=== PATIENT | male | born 1945 | race Asian ===

== ENCOUNTER → 2021-01-28 09:50 | Outpatient (CLI) | payer MEDICARE, OTHER, SELFPAY ==
[2021-01-28 10:28] LABS: Add Manual Diff / Slide Review NO; Basophils Absolute Auto 100 /uL (0-100); Basophils Percent Auto 0.9 % (0-2); Eosinophils Absolute Auto 200 /uL (0-450); Eosinophils Percent Auto 3.3 % (2-4); Hematocrit 47.7 % (41-53); Hemoglobin 15.8 g/dL (13.5-17.5); Lymphocytes Absolute Auto 1400 /uL (1100-4500); Lymphocytes Percent Auto 22.1 % (25-40); Mean Corpuscular HGB Conc 33.2 % (30-36); Mean Corpuscular Hemoglobin 32.5 PG (26-34); Mean Corpuscular Volume 97.9 fL (80-100); Monocytes Absolute Auto 500 /uL (0-900); Monocytes Percent Auto 8.5 % (3-14); Neutrophils Absolute Auto 4100 /uL (1500-7000); Neutrophils Percent Auto 65.2 % (50-75); Platelet Count 273 X10^3/uL (150-400); Red Blood Cell Count 4.87 X10^6/uL (4.5-5.9); Red Cell Distribution Width 13.8 % (11.6-14.8); White Blood Cell Count 6.3 X10^3/uL (4.5-11.0)
[2021-01-28 10:45] LABS: Hemoglobin A1C% w Est Avg Glu 5.3 % (4.0-6.0)
[2021-01-28 12:10] LABS: BUN Creatinine Ratio 28.4 (6-22); Blood Urea Nitrogen 19 mg/dL (9-20); Calcium 9.7 mg/dL (8.4-10.2); Carbon Dioxide 30 mmol/L (22-32); Chloride 105 mmol/L (98-107); Estimated Glomerular Filt Rate > 60.0 mL/min (>60); Glucose 117 mg/dL (80-110); HEMOLYSIS < 15 (0-50); Potassium 4.5 mmol/L (3.4-5.1); Sodium 138 mmol/L (137-145)
== END ==
PROVIDERS: Referring Provider Orthopaedic Surgery; Visit Provider Orthopaedic Surgery
DX: Z01.818 Encounter for other preprocedural examination (principal); R73.9 Hyperglycemia, unspecified; M25.562 Pain in left knee; Z01.812 Encounter for preprocedural laboratory examination
CPT/HCPCS: 36415; 80048; 83036; 85025; 93005; 93010

== ENCOUNTER → 2021-02-05 10:06 | Outpatient (CLI) | payer MEDICARE, OTHER, SELFPAY ==
[2021-02-05 11:46] LABS: COVID19 -Nasal RAPID Negative (Negative)
== END ==
PROVIDERS: Visit Provider Nurse Practitioner
DX: Z20.822 Contact with and (suspected) exposure to COVID-19 (principal)
CPT/HCPCS: 87635; C9803

== ENCOUNTER 2021-02-09 10:44 | Observation (INO) | payer MEDICARE, OTHER, SELFPAY ==
[2021-02-01 09:46] VITALS: BMI 24.3
[2021-02-08] VITALS (10 sets, daily range): BP systolic 116–149; BP diastolic 57–97; PULSE 60–93; RESP 10–16; TEMP 35.8–37.2; O2SAT 96–99; BMI 24.3
[2021-02-08] MEDS: PREGABALIN 75 MG CAPSULE PO (11:49)
[2021-02-08] MEDS: ACETAMINOPHEN 325 MG TABLET 975 MG PO (11:50)
[2021-02-08] MEDS: CELECOXIB 200 MG CAPSULE PO (11:50)
[2021-02-08] MEDS: LACTATED RINGERS 1,000 ML 42 ML IV (11:51)
--- NOTE | 2021-02-08 12:45 | DI.RAD.S_ITS ---
PROCEDURE: XR KNEE LT 1TO2V INDICATIONS: LEFT TOTAL KNEE TECHNIQUE: 2 views of the knee were acquired. COMPARISON: None. FINDINGS: Bones: Expected post operative alignment of left knee arthroplasty. Hardware appears intact. Soft tissues: Expected postsurgical sequela IMPRESSION: Expected post operative appearance. Dictated by: Rigoberto Woods M.D. on 02/08/2021 at 15:56 Approved by: Rigoberto Woods M.D. on 02/08/2021 at 15:57
--- NOTE | 2021-02-08 12:48 | PM.PREOP ---
Pre-operative Note COVID-19 COVID-19 status: Negative Result date/Date tested (Pos, Neg/Pending): 02/05/21 Interval Note History & Physical reviewed/Exam performed by Physician: Yes Changes to H&P: No
[2021-02-08] MEDS: CEFAZOLIN 1 GM VIAL 2 GM IV (13:39)
[2021-02-08] MEDS: TRANEXAMIC ACID 1,000 MG VIAL 1000 MG INJ ×2 (13:46→15:06)
--- NOTE | 2021-02-08 13:56 | SUR.OPER ---
Supine on padded OR bed. Pillow under head, arms secured on padded armboards <90 degree abduction. Safety belt across torso. Non-operative leg secured with tape over blanket over lower leg. Operative leg secured in [place] positioner.
[2021-02-08] MEDS: BUPIVACAINE 0.25% (PF) VIAL 60 ML INJ (14:04)
[2021-02-08] MEDS: EPINEPHrine 1 MG/ML 0.3 MG INJ (14:05)
[2021-02-08] MEDS: BUPIVACAINE LIPOSOME 266 MG/20 ML VIAL INJ (14:05)
[2021-02-08] MEDS: MORPHINE 4 MG/ML INJ INJ (14:07)
--- NOTE | 2021-02-08 15:18 | PM.OP.1 ---
Operative Date/Time/Diagnoses Date of procedure: 02/08/21 Time of procedure: 15:18 Pre-op diagnosis: Left knee osteoarthritis Post-op diagnosis: same Procedure & Clinicians Procedure: Left total knee replacement Same procedure as scheduled: Yes Indications: The patient has had progressively worsening left knee pain with radiographic changes consistent with arthritis. Non-operative management has failed and the patient has requested total knee replacement. The risks, benefits and alternatives to surgery were discussed with the patient prior to proceeding. Risks discussed included, but were not limited to, failure to relieve pain, stiffness, infection, nerve damage, deep venous thrombosis, pulmonary embolism, stroke, coma, heart attack, permanent paralysis and , as well as the potential need for eventual revision of the prosthetic. Surgeon: Jose Cotto Manager Client Service: Jami Westbrook Click Yes if Unassisted: No Anesthesia Type: Spinal, Sedation and Local Operative Notes Findings: Severe tricompartmental osteoarthritis with the worst injury being medial. Closure Type: primary Specimen(s): none sent Prosthetic devices, grafts, tissues, transplants, or devices: Implants used in this procedure were manufactured by the [employer] and [employer] and included the BCS II Journey total knee replacement with a size 7 left cobalt chromium femoral component, a size 6 left non porous tibial base plate, a 9 mm cross-linked polyethylene tibial insert and a 38 mm oval Janet II patella. Applied: implant(s) Estimated Blood Loss (mL): 25 Tourniquet time (min): 53 Procedure in detail: The patient was seen in the pre-operative area, where the left knee was identified as the operative site and this was marked with my initials. The patient received pre-operative antibiotics, and was taken to the operating room and placed on the operative table in the supine position. After satisfactory anesthesia, a program instructor out was performed. The left leg was encircled with a tourniquet about the proximal thigh, and the leg was prepared from the toes to the tourniquet with ChloroPrep in the usual fashion and draped through sterile drapes. The leg was elevated and exsanguinated with Eschmark bandage and the tourniquet inflated to 250 mmHg pressure. The knee was approached through an approximately 18 cm incision centered over the patella and carried into the knee through a medial parapatellar arthrotomy. The anterior osteophytes and soft tissues were removed. The rotational landmarks of [place]'s line and the transepicondylar axis were marked on the femur with electrocautery, and intramedullary guide holes for the femur and tibia were created. The distal femoral cut was made in 6 degrees of valgus using the intramedullary guide at the +1 cut setting due to a mild flexion contracture. The proximal tibial cut was then made using the intramedullary guide, taking 9 mm of bone off the less involved side. The extension gap was checked and the rotation of the femoral component confirmed with the gap balancing blocks. The anterior, posterior and chamfer cuts were then made. The posterior osteophytes and soft tissues were then removed. The posterior capsule was injected with part of a mixture of 60 ml 0.25% Marcaine mixed with 20 ml Exparel and 4 mg of morphine for post-operative pain control. The remainder of this mixture was injected into the capsule and subcutaneous tissues during cement curing. The tibia was prepared with the rotation set by an extra medullary guide. Trial tibial and femoral components were then placed and the intercondylar notch cut through the femoral trial. Range of motion was 0-145 degrees, with good stability throughout the range. The patella was then cut to accommodate the patellar prosthetic. There was no need for a lateral release. The trials were then removed, and the femoral hole plugged with a bone plug. The bone was prepared with pulsatile lavage, and dried with a sponge. Cement was applied and the final prosthetics placed. Excess cement was removed during and after cement curing. After confirming there was no extruded cement posteriorly, the final tibial insert was placed. The knee was copiously irrigated and the tourniquet deflated. Hemostasis was obtained. The capsule was closed with interrupted # 2 polyester sutures. The subcutaneous layer was closed with 3-0 Vicryl, and the skin with a running 3-0 V-Lock suture and Dermabond. An Aquacel Ag dressing was applied and the patient was taken to recovery having tolerated the procedure well. Complications: none Post-operative Condition: stable Disposition: PACU Plan for aftercare: The patient will be maintained on a standard total knee replacement protocol with weight bearing as tolerated. The patient will receive aspirin and sequential compression devices for DVT prophylaxis. The patient will be discharged home when safe for the home environment.
--- NOTE | 2021-02-08 15:49 | SUR.PREOP ---
Note: received reprt at bedside from EVELINA Eastman and Dr Guzman,pt cond stable
--- NOTE | 2021-02-08 16:09 | SUR.PHASEI ---
Report given to floor nurse Perri.
[2021-02-08] MEDS: LACTATED RINGERS 1,000 ML 100 ML IV (16:36)
[2021-02-08] MEDS: IBUPROFEN 400 MG TABLET PO ×2 (17:21→20:30)
[2021-02-08] MEDS: ACETAMINOPHEN 325 MG TABLET 650 MG PO (20:30)
[2021-02-08] MEDS: DOCUSATE 100 MG CAPSULE PO (20:30)
[2021-02-08] MEDS: ASPIRIN EC 81 MG TABLET PO (20:30)
[2021-02-09] VITALS: BP 127/76; PULSE 89; RESP 18; TEMP 36.4; O2SAT 95
[2021-02-09] MEDS: IBUPROFEN 400 MG TABLET PO ×2 (02:24→08:29)
[2021-02-09 04:21] VITALS: BP 132/82; PULSE 77; RESP 18; TEMP 36.1; O2SAT 95
--- NOTE | 2021-02-09 04:39 | PC.NURSE ---
Pt A and O x 4, VSS. Pt unable to void post op, straight cath yeilded 900 mLs. Pt denies pain. Pt able to eat and has an appetite but has had small emesis events x 3. LS clear, S1, S2.
[2021-02-09 05:51] LABS: Hematocrit 41.7 % (41-53); Hemoglobin 14.1 g/dL (13.5-17.5)
[2021-02-09 08:15] VITALS: BP 143/86; PULSE 94; RESP 17; TEMP 36.9; O2SAT 98
[2021-02-09] MEDS: OXYCODONE IR 5 MG TABLET PO (08:28)
[2021-02-09] MEDS: DOCUSATE 100 MG CAPSULE PO (08:28)
[2021-02-09] MEDS: ASPIRIN EC 81 MG TABLET PO (08:28)
[2021-02-09] MEDS: ACETAMINOPHEN 325 MG TABLET 650 MG PO (08:28)
[2021-02-09 08:29] VITALS: BP 132/82
[2021-02-09] MEDS: LOSARTAN 50 MG TABLET PO (08:29)
--- NOTE | 2021-02-09 09:15 | PM.DS.1 ---
History of Present Illness History of Present Illness Date Patient Seen: 02/09/21 Time Patient Seen: 09:16 Chief complaint: Left knee pain status post left TKA Narrative: The patient's pain is mild. He experienced nausea and vomiting last night, but this has resolved this morning. He denies fevers, chills, night sweats. He is overall feeling well. He has not worked with physical therapy yet. He is having some difficulty voiding and therefore tamsulosin was ordered today. Otherwise he is without complaints. Discharge Providers Provider Discharge Date: 02/09/21 Primary care physician: Kyle Barrera MD Consults: 02/08/21 16:03 Consult to Discharge Planning Routine Comment: Consult to Physical Therapy Evaluate & Treat Comment: Physician Instructions: postop TKA protocol Discharge provider: Jami Westbrook PA-C Summary Hospital Course Discharge Diagnosis: Left knee osteoarthritis Hospital Course: Procedure: Left total knee replacement Same procedure as scheduled: Yes Indications: The patient has had progressively worsening left knee pain with radiographic changes consistent with arthritis. Non-operative management has failed and the patient has requested total knee replacement. The risks, benefits and alternatives to surgery were discussed with the patient prior to proceeding. Risks discussed included, but were not limited to, failure to relieve pain, stiffness, infection, nerve damage, deep venous thrombosis, pulmonary embolism, stroke, coma, heart attack, permanent paralysis and , as well as the potential need for eventual revision of the prosthetic. Surgeon: Jose Cotto Sheetrock Applicator: Jami Westbrook Click Yes if Unassisted: No Anesthesia Type: Spinal, Sedation and Local Operative Notes Findings: Severe tricompartmental osteoarthritis with the worst injury being medial. Closure Type: primary Specimen(s): none sent Prosthetic devices, grafts, tissues, transplants, or devices: Implants used in this procedure were manufactured by the [employer] and [employer] and included the BCS II Journey total knee replacement with a size 7 left cobalt chromium femoral component, a size 6 left non porous tibial base plate, a 9 mm cross-linked polyethylene tibial insert and a 38 mm oval Janet II patella. Applied: implant(s) Estimated Blood Loss (mL): 25 Tourniquet time (min): 53 Status at Discharge Cognitive/behavioral status at discharge: oriented Functional status at discharge: uses cane/walker Overall status at discharge: patient is progressing back to baseline Exam Vital Signs (past 8 hours): - 02/09/21 04:21 02/09/21 08:15 02/09/21 08:29 Temperature 97.0 F L 98.4 F Pulse Rate 77 94 H Respiratory Rate 18 17 Blood Pressure 132/82 143/86 H 132/82 Pulse Oximetry 95 98 Oxygen Delivery Method Room Air Oxygen Flow Rate 0 Narrative Exam Narrative: Pleasant 75-year-old male, resting comfortably in bed, no acute distress. is at bedside. Motor functions are intact in bilateral lower extremities. Sensation is grossly intact to light touch in bilateral lower extremities. Both legs are warm and dry and SCDs were on and functioning. Bilateral calves are soft, nontender to palpation. Dressing is clean, dry, intact. Objective Labs Result Diagrams: 02/09/21 05:30 Labs: Laboratory Results - last 24 hr 02/09/21 05:30 Hgb 14.1 Hct 41.7 PFSH Medical History Arthritis Dislocation of left shoulder joint Easy bruisability HTN (hypertension) Neuropathy Osteoarthritis Surgical History History of ankle surgery (1970) History of hip surgery (1959) Hx of arthroscopy of left knee (1999) Hx of arthroscopy of right knee (1998) Hx of bilateral cataract extraction Hx of repair of right rotator cuff (2010) Hx of tonsillectomy Social History household members: spouse Smoking Status: Never smoker alcohol intake: current Discharge Assessment & Plan Assessment and Plan Assessment: Progressing as expected status post left total knee arthroplasty. The patient is experiencing some urinary retention. Plan of Treatment: -aspirin 81 mg b.i.d. x6 weeks for DVT prophylaxis -Tylenol, ibuprofen, Oxy for pain. -Mobilize with PT x2 sessions today -Add Flomax for urinary retention -If the patient is cleared by PT and is voiding without difficulty, he may be discharged home today. Otherwise we will need to keep him another night. Discharge Plan Discharge Plan Patient Disposition: Home Discharge orders & Medications Discharge Orders: Discharge (Order); Ordered 02/09/21 Ordered By: Jami Westbrook Prescriptions: New acetaminophen 500 mg capsule 500 mg PO Q4H MDD Max 6 tabs/day PRN (Reason: pain) Qty: 90 RF: 0 aspirin 81 mg Tablet,Delayed Release (Dr/Ec) 81 mg PO BID PRN (Reason: To prevent blood clots x6 weeks) Qty: 90 RF: 0 ibuprofen 400 mg Tablet 400 mg PO Q4HR MDD Max 2400 mg per day PRN (Reason: pain) Qty: 90 RF: 0 oxycodone 5 mg Tablet 5 mg PO Q3HR PRN (Reason: Breakthrough pain, moderate to severe) Qty: 42 RF: 0 polyethylene glycol 3350 17 gram Powder In Packet 17 g PO DAILY PRN (Reason: Constipation from the narcotic pain med) Qty: 14 RF: 0 tamsulosin 0.4 mg capsule 0.4 mg PO BEDTIME PRN (Reason: urinary retention) Qty: 5 RF: 0 Continued losartan 50 mg Tablet 50 mg PO DAILY RF: 0 Discontinued naproxen sodium [Aleve] 220 mg Capsule 220 mg PO BID RF: 0 Follow up/Referrals: Kyle Barrera MD [Primary Care Provider] - Jose Cotto MD [Physician] - (10-14 days for postoperative visit) Diet/Activity/Treatments Diet: Diet as Tolerated and Regular Activity: -weightbearing as tolerated with front wheel walker -continue with home exercises from physical therapy Cold/Heat Therapy: -use ice as needed for pain for 30 minutes up to 3 hours at a time, 3-5 xs per day -protect skin from ice with folded pillowcase/washcloth Other treatments: -aspirin 81 mg twice daily x6 weeks to prevent blood clots -Tylenol 500 mg every 4 hours plus ibuprofen 400 mg every 4 hours for pain -use Oxy 5 mg 1/2 to 1 tab every 3-4 hours for breakthrough pain -Use MiraLax as needed for constipation due to Oxy -Use tamsulosin as needed for urinary retention x5 days Skin/Wound/Dressing Care Report to your healthcare provider any signs of infection, such as:: chills, fever, night sweats, unusual drainage and unusual redness Dressing: -remove Yimi wrap after 48 hours from surgery -okay to shower with waterproof dressing in place. Do not remove waterproof dressing. -call the office if dressing becomes wet, soiled, saturated Visit Report/Discharge Packet Instructions: DI for Knee Replacement Stand Alone Forms: Surgery Discharge Discharge Data Primary Care Provider: Kyle Barrera Attending Provider: Jose Cotto VTE Deep Vein Thrombosis/Pulmonary Embolism Present on Admission: No
[2021-02-09] MEDS: TAMSULOSIN 0.4 MG CAPSULE PO (10:19)
--- NOTE | 2021-02-09 10:30 | PT.IIE ---
Current Diagnoses Unilateral primary osteoarthritis, left knee (02/09/21) Surgery Performed Operation Date: 02/08/21 12:45 Actual Procedures p Total Knee Arthroplasty(Left) - Jose Cotto MD Medical History (Last Reviewed 02/09/21 @ 09:18 by Jami Westbrook PA-C) Arthritis Dislocation of left shoulder joint Easy bruisability HTN (hypertension) Neuropathy Osteoarthritis Physical Therapy Inpatient Evaluation/Re-Eval M1 PT/OT-IP Prior Functional Status Start: 02/09/21 12:21 Freq: NEEDED Status: Active Protocol: Document 02/09/21 10:30 DLM (Rec: 02/09/21 12:36 DLM [id number]) Medical Review Prior Functional Status Medical History Reviewed Yes Diet/Fluid Consistency Regular Communication WNL, glasses Mobility and Gait Independent without device Activities of Daily Living and IADL's Independent Prior Functional Level (Other details) he likes to boat and go crabbing, he mostly uses his power boat but has a sail boat also Social History Household Members spouse Living Arrangements House Number of Floors (Floors) Two Floors Number of Stairs To Enter/Railing? can stay on main level, one step to enter Home Environment Standard Height Toilet Home Equipment Front Wheel Walker,Straight Cane,Crutches Employment Status Retired M2 PT-IP Current Condition Start: 02/09/21 12:21 Freq: NEEDED Status: Active Protocol: Document 02/09/21 10:30 DLM (Rec: 02/09/21 12:36 DLM [id number]) Physical Therapy Current Condition Current Condition Evaluation Date 02/09/21 Treatment Diagnosis left TKA, impaired gait Onset Date 02/08/21 Weight Bearing Status Weight Bearing Status Weight Bear as Tolerated M3 PT-IP Subjective Start: 02/09/21 12:21 Freq: NEEDED Status: Active Protocol: Document 02/09/21 10:30 DLM (Rec: 02/09/21 12:36 DLM [id number]) Subjective Physical Therapy Visit Type Type Initial Evaluation Visit Start Time 09:30 Visit Stop Time 10:30 Total Visit Minutes 60 Number of MODELING DIRECTOR Visits 0 Physical Therapy Visit Comments Patient Comments He feels he is doing well today Patient Goals Discharge home Therapy Pain Assessment Pain When Pain Assessed After Treatment Pain Present Pain Present Pain Reported Location Left Knee Intensity 4 Scale Used Numeric (0 - 10) Description Aching Pain Behaviors Wincing Pain Management Techniques Apply Cold,Elevation,Re- positioning,Timing of Activity with Medications M4 PT-IP Mobility and Gait Start: 02/09/21 12:21 Freq: NEEDED Status: Active Protocol: Document 02/09/21 10:30 DLM (Rec: 02/09/21 12:36 DLM [id number]) PT-Bed Mobility Assessment Rolling Level of Assist Independent Supine to Sit Supine to Sit Independent Sit to Supine Sit to Supine Independent Scooting Scooting to Edge of Bed Independent Scooting Up and Down in Bed Independent PT-Transfer Assessment Sit to and From Stand Sit to and from Stand Independent,Use of Upper Extremities Equipment Transfer Assistive Device Gait Belt,Front Wheeled Walker Transfers Transfer Destination Bed,Toilet Transfer Technique Stand Step Pivot Transfer Ability Level of Assist Standby Assistance,Use of Upper Extremities Comments Mobility Comments pt up to toilet to urinate standing with FWW then for BM seated Gait Assessment Gait Gait Assistance Required: Standby Assistance Distance (Feet) 300 Assistive Devices Assistive Device Gait Belt,Front Wheeled Walker Gait Deviations General Gait Pattern Antalgic,Decreased Stride Length Factors Limiting Gait Function Factors Limiting Gait Function Decreased Activity Tolerance, Decreased Strength,Limited Range of Motion,Pain,Poor Balance Comments Gait Comments He demonstrates safe use of FWW, he shows minimal compensations with UE's but educated him to increase UE support on FWW if left knee feels weak or painful Stair Climbing Assessment Evaluation Level of Assist On Stairs Standby Assistance Devices Stair Climbing Assistive Devices Front Wheel Walker Technique/Endurance Stair Climbing Direction Ascend and Descend Stair Climbing Technique Step to Step Number of Steps Climbed 1 Query Text: Stair Climbing Set # Repetitions (reps) 2 Comments Stair Climbing Comments Up and down curb step with FWW and SBA. Up and down 3 steps with bilateral rails with SBA, pt to use cane or crutch in place of second rail if he chooses to do stairs at home. PT-Balance Assessment Sitting Balance and Reactions Static Sitting Balance Ability Normal Dynamic Sitting Balance Ability Normal Standing Balance and Reactions Static Standing Balance Ability Good Dynamic Standing Balance Ability Good Device Used FWW M5 PT-IP Objective Assessments Start: 02/09/21 12:21 Freq: NEEDED Status: Active Protocol: Document 02/09/21 10:30 DLM (Rec: 02/09/21 12:36 [facility] [id number]) Orientation Orientation/Cognition Level of Alertness Alert Orientation Name,Age,Birthday,Month,Date, Year,Day of Week,Place, Situation Language Function Ability No Deficits Noted Safety Awareness Understands Safety Issues Memory Description No Deficits Noted Gross Range of Motion Upper Extremity ROM Assessment Within Functional Limits Impairments mild end range shoulder elevation stiffness Lower Extremity ROM Assessment Left Impaired Impairments knee 20-90 degrees Strength Upper Extremity Strength Assessment Within Functional Limits Lower Extremity Strength Assessment Left Impaired Hip independent straight leg raise Knee knee ext seated 3-/5 Ankle DF 5/5 Coordination Assessment Gross Coordination Gross Coordination WNL Sensation Assessment Sensation Gross Sensation WNL Comments Sensation Comments heather wrap in place over dressing so this area was not fully assessed, no changes reported in left LE in general after surgery Muscle Tone Muscle Tone WNL Yes M6 PT-IP Treatment Start: 02/09/21 12:21 Freq: NEEDED Status: Active Protocol: Document 02/09/21 10:30 DLM (Rec: 02/09/21 12:36 [facility] [id number]) Physical Therapy Treatment Exercises Exercises Ankle Pumps,Quad Sets,Heel Slides,Straight Leg Raises, Short Arc Quads,Passive Knee Extension Hang,Seated Knee Flexion/Extension Education Education Provided Weight Bearing Status,Post-Op Packet,Safety Equipment Issued Equipment Type and Company pt has his FWW from home in his room Other Treatments Other Treatment Performed educated pt and his in HEP and home safety issues, his participated in this therapy visit M7 PT-IP Assessment and Plan Start: 02/09/21 12:21 Freq: NEEDED Status: Active Protocol: Document 02/09/21 10:30 DLM (Rec: 02/09/21 12:36 [facility] [id number]) PT Summary Assessment and Plan Potential Rehabilitation Potential Excellent Status of Condition at Evaluation Evolving Summary Impairments Pain,ROM,Strength,Balance,Bed Mobility,Transfers,Gait, Activity Tolerance Goals Bed Mobility Goal Independent Transfer Goal Standby Assistance,Front Wheeled Walker Gait Goal Standby Assistance,Front Wheel Walker Gait Distance 150 feet Other Goals Up and down one step with fWW and SBA to enter the house Days to Meet Goals 1 Frequency of Treatment Frequency Of Treatment Twice a Day Treatment Plan Physical Therapy Treatment Plan Bed Mobility Training,Transfer Training,Gait Training, Therapeutic Exercise,Balance Retraining,Post Op Education, Discharge Planning,Hot or Cold Pack Recommendations To Nursing Amount of Assist Needed Standby Assistance Discharge Recommendations PT Discharge Recommendations Home with Assistance, Outpatient PT Other Discharge Recommendations he reports he has out-pt PT planned post-op Transportation Needs at Discharge Private Vehicle
--- NOTE | 2021-02-09 10:30 | PT.IIE ---
Current Diagnoses Unilateral primary osteoarthritis, left knee (02/09/21) Surgery Performed Operation Date: 02/08/21 12:45 Actual Procedures p Total Knee Arthroplasty(Left) - Jose Cotto MD Medical History (Last Reviewed 02/09/21 @ 09:18 by Jami Westbrook PA-C) Arthritis Dislocation of left shoulder joint Easy bruisability HTN (hypertension) Neuropathy Osteoarthritis Physical Therapy Inpatient Evaluation/Re-Eval M1 PT/OT-IP Prior Functional Status Start: 02/09/21 12:21 Freq: NEEDED Status: Active Protocol: Document 02/09/21 10:30 DLM (Rec: 02/09/21 12:36 DLM [id number]) Medical Review Prior Functional Status Medical History Reviewed Yes Diet/Fluid Consistency Regular Communication WNL, glasses Mobility and Gait Independent without device Activities of Daily Living and IADL's Independent Prior Functional Level (Other details) he likes to boat and go crabbing, he mostly uses his power boat but has a sail boat also Social History Household Members spouse Living Arrangements House Number of Floors (Floors) Two Floors Number of Stairs To Enter/Railing? can stay on main level, one step to enter Home Environment Standard Height Toilet Home Equipment Front Wheel Walker,Straight Cane,Crutches Employment Status Retired M2 PT-IP Current Condition Start: 02/09/21 12:21 Freq: NEEDED Status: Active Protocol: Document 02/09/21 10:30 DLM (Rec: 02/09/21 12:36 DLM [id number]) Physical Therapy Current Condition Current Condition Evaluation Date 02/09/21 Treatment Diagnosis left TKA, impaired gait Onset Date 02/08/21 Weight Bearing Status Weight Bearing Status Weight Bear as Tolerated M3 PT-IP Subjective Start: 02/09/21 12:21 Freq: NEEDED Status: Active Protocol: Document 02/09/21 10:30 DLM (Rec: 02/09/21 12:36 DLM [id number]) Subjective Physical Therapy Visit Type Type Initial Evaluation Visit Start Time 09:30 Visit Stop Time 10:30 Total Visit Minutes 60 Number of BOTTLER Visits 0 Physical Therapy Visit Comments Patient Comments He feels he is doing well today Patient Goals Discharge home Therapy Pain Assessment Pain When Pain Assessed After Treatment Pain Present Pain Present Pain Reported Location Left Knee Intensity 4 Scale Used Numeric (0 - 10) Description Aching Pain Behaviors Wincing Pain Management Techniques Apply Cold,Elevation,Re- positioning,Timing of Activity with Medications M4 PT-IP Mobility and Gait Start: 02/09/21 12:21 Freq: NEEDED Status: Active Protocol: Document 02/09/21 10:30 DLM (Rec: 02/09/21 12:36 DLM [id number]) PT-Bed Mobility Assessment Rolling Level of Assist Independent Supine to Sit Supine to Sit Independent Sit to Supine Sit to Supine Independent Scooting Scooting to Edge of Bed Independent Scooting Up and Down in Bed Independent PT-Transfer Assessment Sit to and From Stand Sit to and from Stand Independent,Use of Upper Extremities Equipment Transfer Assistive Device Gait Belt,Front Wheeled Walker Transfers Transfer Destination Bed,Toilet Transfer Technique Stand Step Pivot Transfer Ability Level of Assist Standby Assistance,Use of Upper Extremities Comments Mobility Comments pt up to toilet to urinate standing with FWW then for BM seated Gait Assessment Gait Gait Assistance Required: Standby Assistance Distance (Feet) 300 Assistive Devices Assistive Device Gait Belt,Front Wheeled Walker Gait Deviations General Gait Pattern Antalgic,Decreased Stride Length Factors Limiting Gait Function Factors Limiting Gait Function Decreased Activity Tolerance, Decreased Strength,Limited Range of Motion,Pain,Poor Balance Comments Gait Comments He demonstrates safe use of FWW, he shows minimal compensations with UE's but educated him to increase UE support on FWW if left knee feels weak or painful Stair Climbing Assessment Evaluation Level of Assist On Stairs Standby Assistance Devices Stair Climbing Assistive Devices Front Wheel Walker Technique/Endurance Stair Climbing Direction Ascend and Descend Stair Climbing Technique Step to Step Number of Steps Climbed 1 Query Text: Stair Climbing Set # Repetitions (reps) 2 Comments Stair Climbing Comments Up and down curb step with FWW and SBA. Up and down 3 steps with bilateral rails with SBA, pt to use cane or crutch in place of second rail if he chooses to do stairs at home. PT-Balance Assessment Sitting Balance and Reactions Static Sitting Balance Ability Normal Dynamic Sitting Balance Ability Normal Standing Balance and Reactions Static Standing Balance Ability Good Dynamic Standing Balance Ability Good Device Used FWW M5 PT-IP Objective Assessments Start: 02/09/21 12:21 Freq: NEEDED Status: Active Protocol: Document 02/09/21 10:30 DLM (Rec: 02/09/21 12:36 DLM [id number]) Orientation Orientation/Cognition Level of Alertness Alert Orientation Name,Age,Birthday,Month,Date, Year,Day of Week,Place, Situation Language Function Ability No Deficits Noted Safety Awareness Understands Safety Issues Memory Description No Deficits Noted Gross Range of Motion Upper Extremity ROM Assessment Within Functional Limits Impairments mild end range shoulder elevation stiffness Lower Extremity ROM Assessment Left Impaired Impairments knee 20-90 degrees Strength Upper Extremity Strength Assessment Within Functional Limits Lower Extremity Strength Assessment Left Impaired Hip independent straight leg raise Knee knee ext seated 3-/5 Ankle DF 5/5 Coordination Assessment Gross Coordination Gross Coordination WNL Sensation Assessment Sensation Gross Sensation WNL Comments Sensation Comments heather wrap in place over dressing so this area was not fully assessed, no changes reported in left LE in general after surgery Muscle Tone Muscle Tone WNL Yes M6 PT-IP Treatment Start: 02/09/21 12:21 Freq: NEEDED Status: Active Protocol: Document 02/09/21 10:30 DLM (Rec: 02/09/21 12:36 DL [id number]) Physical Therapy Treatment Exercises Exercises Ankle Pumps,Quad Sets,Heel Slides,Straight Leg Raises, Short Arc Quads,Passive Knee Extension Hang,Seated Knee Flexion/Extension Education Education Provided Weight Bearing Status,Post-Op Packet,Safety Equipment Issued Equipment Type and Company pt has his FWW from home in his room Other Treatments Other Treatment Performed educated pt and his in HEP and home safety issues, his participated in this therapy visit Pt appears more pale and fatigued when back in bed after therapy. Vital signs checked: BP 118/78 and HR 91, O2 sat on room air 95%. His nurse was informed. Pt has no symptoms other than fatigue at this time. M7 PT-IP Assessment and Plan Start: 02/09/21 12:21 Freq: NEEDED Status: Active Protocol: Document 02/09/21 10:30 DLM (Rec: 02/09/21 12:36 DL [id number]) PT Summary Assessment and Plan Potential Rehabilitation Potential Excellent Status of Condition at Evaluation Evolving Summary Impairments Pain,ROM,Strength,Balance,Bed Mobility,Transfers,Gait, Activity Tolerance Assessment: Pt is tolerating activity well post-op. No nausea and no light-headedness during activity. He tolerated gait in the coronado and stair training well with fWW. He has a supportive to assist at home as needed. He has a fWW to use at home for discharge. Training completed this visit for safe discharge. He appears safe to discharge home when medically cleared. Goals Bed Mobility Goal Independent Transfer Goal Standby Assistance,Front Wheeled Walker Gait Goal Standby Assistance,Front Wheel Walker Gait Distance 150 feet Other Goals Up and down one step with fWW and SBA to enter the house Days to Meet Goals 1 Frequency of Treatment Frequency Of Treatment Twice a Day Treatment Plan Physical Therapy Treatment Plan Bed Mobility Training,Transfer Training,Gait Training, Therapeutic Exercise,Balance Retraining,Post Op Education, Discharge Planning,Hot or Cold Pack Recommendations To Nursing Amount of Assist Needed Standby Assistance Discharge Recommendations PT Discharge Recommendations Home with Assistance, Outpatient PT Other Discharge Recommendations he reports he has out-pt PT planned post-op Transportation Needs at Discharge Private Vehicle
--- NOTE | 2021-02-09 11:19 | PC.NURSE ---
Discharge: pt discharged home. Urinating in small amounts. Flomax dose administered. Also instructed pt to pick Flomax up from [facility]. REviewed all medications prescribed, as well as activity restrictions, care of surgical incision, when he can shower. IV discontinued. All belongings went home with patient. is driving.
== END 2021-02-09 11:22 | disposition home or self-care (01) ==
LOC: OR 10:50 → AC 10:50
PROVIDERS: Admitting Provider Orthopaedic Surgery; PCP Student in an Organized Health Care Education/Training Program; Referring Provider Orthopaedic Surgery; Visit Provider Orthopaedic Surgery
PROC: 0SRD0JZ Replacement of Left Knee Joint with Synthetic Substitute, Open Approach (ICD-10-PCS; CPT 27447; principal; 2021-02-08 12:45)
DX: M17.12 Unilateral primary osteoarthritis, left knee (principal); I10 Essential (primary) hypertension; R11.2 Nausea with vomiting, unspecified
CPT/HCPCS: 27447; 73560; 85014; 85018; 97110; 97116; 97162; C1776; G0378; C9290; J0171; J0690; J2270; J2274; J2704

== ENCOUNTER → 2021-05-17 12:50 | Outpatient (CLI) | payer MEDICARE, OTHER, SELFPAY ==
[2021-02-08 16:41] VITALS: BMI 24.3
[2021-05-17 16:21] LABS: COVID19 -Nasal RAPID Negative (Negative)
== END ==
PROVIDERS: PCP Student in an Organized Health Care Education/Training Program; Visit Provider Physician Assistant
DX: Z20.822 Contact with and (suspected) exposure to COVID-19 (principal)
CPT/HCPCS: 87635; C9803

== ENCOUNTER → 2021-05-17 13:00 | Outpatient (CLI) | payer MEDICARE, OTHER, SELFPAY ==
[2021-02-08 16:41] VITALS: BMI 24.3
[2021-05-17 13:56] LABS: Add Manual Diff / Slide Review NO; Basophils Absolute Auto 100 /uL (0-100); Basophils Percent Auto 0.9 % (0-2); Eosinophils Absolute Auto 200 /uL (0-450); Eosinophils Percent Auto 3.1 % (2-4); Hematocrit 45.3 % (41-53); Hemoglobin 15.2 g/dL (13.5-17.5); Lymphocytes Absolute Auto 1400 /uL (1100-4500); Lymphocytes Percent Auto 23.1 % (25-40); Mean Corpuscular HGB Conc 33.5 % (30-36); Mean Corpuscular Hemoglobin 31.8 PG (26-34); Mean Corpuscular Volume 94.7 fL (80-100); Monocytes Absolute Auto 500 /uL (0-900); Monocytes Percent Auto 8.5 % (3-14); Neutrophils Absolute Auto 4000 /uL (1500-7000); Neutrophils Percent Auto 64.4 % (50-75); Platelet Count 265 X10^3/uL (150-400); Red Blood Cell Count 4.78 X10^6/uL (4.5-5.9); Red Cell Distribution Width 14.3 % (11.6-14.8); White Blood Cell Count 6.2 X10^3/uL (4.5-11.0)
[2021-05-17 14:09] LABS: Hemoglobin A1C% w Est Avg Glu 5.3 % (4.0-6.0)
[2021-05-17 14:16] LABS: BUN Creatinine Ratio 27.9 (6-22); Blood Urea Nitrogen 19 mg/dL (9-20); Calcium 9.8 mg/dL (8.4-10.2); Carbon Dioxide 29 mmol/L (22-32); Chloride 104 mmol/L (98-107); Estimated Glomerular Filt Rate > 60.0 mL/min (>60); Glucose 108 mg/dL (80-110); HEMOLYSIS < 15 (0-50); Potassium 4.7 mmol/L (3.4-5.1); Sodium 138 mmol/L (137-145)
== END ==
PROVIDERS: PCP Student in an Organized Health Care Education/Training Program; Referring Provider Orthopaedic Surgery; Visit Provider Orthopaedic Surgery
DX: R73.9 Hyperglycemia, unspecified (principal); Z01.812 Encounter for preprocedural laboratory examination
CPT/HCPCS: 36415; 80048; 83036; 85025

== ENCOUNTER 2021-05-20 10:54 | Observation (INO) | payer MEDICARE, OTHER, SELFPAY ==
[2021-02-08 16:41] VITALS: BMI 24.3
[2021-05-11 14:05] VITALS: BMI 24.1
[2021-05-19] VITALS (9 sets, daily range): BP systolic 90–156; BP diastolic 53–104; PULSE 47–99; RESP 14–91; TEMP 36.3–37.1; O2SAT 96–99; BMI 24.1
--- NOTE | 2021-05-19 06:00 | DI.RAD.S_ITS ---
PROCEDURE: XR KNEE RT 1TO2V INDICATIONS: prosthesis placement TECHNIQUE: 2 view(s) of the knee acquired. COMPARISON: [facility] [place], [place], XR KNEE 4+ VIEWS LEFT, 03/25/2021, 14:50. FINDINGS: Bones: Patient is status post knee joint arthroplasty. Hardware components are in expected positions. Visualized bony structures are intact. Ossification adjacent to the medial femoral condyle is stable compared to preoperative imaging. Soft tissues: Overlying postoperative changes are noted. IMPRESSION: Expected postsurgical change for left knee arthroplasty. Dictated by: Terri Rios MD, PhD on 05/19/2021 at 16:13 Approved by: Terri Rios MD, PhD on 05/19/2021 at 16:13
[2021-05-19] MEDS: LACTATED RINGERS 1,000 ML 42 ML IV ×2 (12:45→16:26)
[2021-05-19] MEDS: ACETAMINOPHEN 325 MG TABLET 975 MG PO (12:49)
[2021-05-19] MEDS: MELOXICAM 7.5 MG TABLET 15 MG PO (12:49)
[2021-05-19] MEDS: CELECOXIB 200 MG CAPSULE PO (12:50)
--- NOTE | 2021-05-19 13:15 | P.OP_ITS ---
Operative Date/Time/Diagnoses Date of procedure: 05/19/21 Time of procedure: 15:41 Pre-op diagnosis: Right knee osteoarthritis Post-op diagnosis: same Procedure & Clinicians Procedure: Right total knee replacement Same procedure as scheduled: Yes Indications: The patient has had progressively worsening right knee pain with radiographic changes consistent with arthritis. Non-operative management has failed and the patient has requested total knee replacement. The risks, benefits and alternatives to surgery were discussed with the patient prior to proceeding. Risks discussed included, but were not limited to, failure to relieve pain, stiffness, infection, nerve damage, deep venous thrombosis, pulmonary embolism, stroke, coma, heart attack, permanent paralysis and , as well as the potential need for eventual revision of the prosthetic. Surgeon: Jose Cotto Federal Appellate Clerk: Jami Westbrook Click Yes if Unassisted: No Anesthesia Type: General, Spinal and Local Operative Notes Findings: Severe tricompartmental osteoarthritis Closure Type: primary Specimen(s): none sent Prosthetic devices, grafts, tissues, transplants, or devices: Implants used in this procedure were manufactured by the [employer] and included the BCS II Journey total knee replacement with a size 6 right cobalt chromium femur, a size 7 right non porous tibial base plate, a an 11 mm cross-linked polyethylene insert and a 35 mm oval Janet II patellar component. Applied: implant(s) Estimated Blood Loss (mL): 25 Blood products transfused: none Tourniquet time (min): 52 Procedure in detail: The patient was seen in the pre-operative area, where the patient identified the right knee as the operative site and this was marked with my initials. The patient received pre-operative antibiotics, and was taken to the operating room and placed on the operative table in the supine position. After satisfactory anesthesia, a ratchet setter out was performed. The right leg was encircled with a tourniquet about the proximal thigh, and the leg was prepared from the toes to the tourniquet with ChloroPrep in the usual fashion and draped through sterile drapes. The leg was elevated and exsanguinated with Eschmark bandage and the tourniquet inflated to 250 mmHg pressure. The knee was approached through an approximately 18 cm incision centered over the patella and carried into the knee through a medial parapatellar arthrotomy. The anterior osteophytes and soft tissues were removed. The rotational landmarks of Kittitas's line and the transepicondylar axis were marked on the femur with electrocautery, and intramedullary guide holes for the femur and tibia were created. The distal femoral cut was made in 6 degrees of valgus using the intramedullary guide at the primary cut setting. The proximal tibial cut was then made using the intramedullary guide, taking 9 mm of bone off the less involved side. The extension gap was checked and the rotation of the femoral component confirmed with the gap balancing system. The anterior, posterior and chamfer cuts were then made. The posterior osteophytes and soft tissues were then removed. The posterior capsule was injected with part of a mixture of 60 ml 0.25% Marcaine mixed with 20 ml Exparel and 4 mg of morphine for post-operative pain control. The remainder of this mixture was injected into the capsule and subcutaneous tissues during cement curing. The tibia was prepared with the rotation set by an extra medullary guide. Trial tibial and femoral components were then placed and the intercondylar notch cut through the femoral trial. Range of motion was 0-135 degrees, with good stability throughout the range. The patella was then cut to accommodate the patellar prosthetic. There was no need for a lateral release. The trials were then removed, and the femoral hole plugged with a bone plug. The bone was prepared with pulsatile lavage, and dried with a sponge. Cement was a pplied and the final prosthetics placed. Excess cement was removed during and after cement curing. After confirming there was no extruded cement posteriorly, the final tibial insert was placed. The knee was copiously irrigated and the tourniquet deflated. Hemostasis was obtained. The capsule was closed with interrupted # 2 polyester suture. The subcutaneous layer was closed with 3-0 Vicryl, and the skin with a running 3-0 V-Lock suture and Dermabond. An Aquacel Ag dressing was applied and the patient was taken to recovery having tolerated the procedure well. Post-operative Condition: stable Disposition: PACU Plan for aftercare: The patient will be maintained on a standard total knee replacement protocol with weight bearing as tolerated. The patient will receive aspirin and sequential compression devices for DVT prophylaxis. The patient will be discharged home when safe for the home environment.
--- NOTE | 2021-05-19 13:15 | PM.PREOP ---
Pre-operative Note COVID-19 COVID-19 status: Negative Result date/Date tested (Pos, Neg/Pending): 05/17/21 Interval Note History & Physical reviewed/Exam performed by Physician: Yes Changes to H&P: No
[2021-05-19] MEDS: CEFAZOLIN 2 GM/20 ML SYRINGE IV (14:13)
[2021-05-19] MEDS: TRANEXAMIC ACID 1,000 MG VIAL 1000 MG INJ ×2 (14:15→15:25)
--- NOTE | 2021-05-19 14:28 | SUR.OPER ---
Supine on padded OR bed. Pillow under head, arms secured on padded armboards <90 degree abduction. Safety belt across torso. Non-operative leg secured with tape over blanket over lower leg. Operative leg secured in [place] positioner. Foam padded brace at thigh of operative leg.
[2021-05-19] MEDS: BUPIVACAINE 0.25% (PF) 60 ML, EPINEPHrine 0.3 MG INJ (14:31)
[2021-05-19] MEDS: MORPHINE 4 MG/ML INJ INJ (14:32)
[2021-05-19] MEDS: BUPIVACAINE LIPOSOME 266 MG/20 ML VIAL INJ (14:32)
--- NOTE | 2021-05-19 16:27 | SUR.PHASEI ---
Patient with 1200 ml lactated ringers infused in PACU.
[2021-05-19] MEDS: LACTATED RINGERS 1,000 ML 100 ML IV ×2 (19:56→22:00)
--- NOTE | 2021-05-19 19:58 | PC.NURSE ---
Pt arrived from PACU at 1630, A&Ox3. He denies N/V, or pain. +CMS to BLE's, reports RLE feels slightly heavier. VSS, afebrile on RA. He tolerates dinner this evening well. IVF @100 ml/hr. Continuous monitoring, Admission assessment completed with Zurdo HOYT. Endorsed to oncoming shift about history of urinary retention. Continuous monitoring.
[2021-05-19] MEDS: ONDANSETRON 4 MG/2 ML INJ IV (20:55)
[2021-05-19] MEDS: DOCUSATE 100 MG CAPSULE PO (20:55)
[2021-05-19] MEDS: TAMSULOSIN 0.4 MG CAPSULE 0.8 MG PO (20:55)
[2021-05-19] MEDS: ACETAMINOPHEN 325 MG TABLET 650 MG PO (20:55)
[2021-05-19] MEDS: ASPIRIN EC 81 MG TABLET PO (20:55)
--- NOTE | 2021-05-19 22:08 | PC.NURSE ---
2200: patient is a/o, denies pain/discomfort. tolerating RA 97%. + CSM, dressing is CDI, ice packs in place. denies n/v. bladder scan: 442mL standing orders for strait cath/leave stearns in. 16french 10cc stearns placed w/ drain bag to gravity. 650cc clear yellow urine collected in bag after stearns placed. patient request no intermittent catheterization but to leave stearns in place, as this was the similar course of events 3 months ago when he had his L knee replaced.
[2021-05-20] VITALS: BP 131/86; PULSE 98; RESP 16; TEMP 36.9
[2021-05-20 04:00] VITALS: BP 134/84; PULSE 93; RESP 16; TEMP 36.7; O2SAT 96
[2021-05-20] MEDS: LACTATED RINGERS 1,000 ML 100 ML IV (05:29)
[2021-05-20 06:37] LABS: Hematocrit 39.1 % (41-53); Hemoglobin 13.2 g/dL (13.5-17.5)
--- NOTE | 2021-05-20 07:37 | PM.DS.1 ---
History of Present Illness History of Present Illness Date Patient Seen: 05/20/21 Time Patient Seen: 07:38 Chief complaint: *OPB* Narrative: The history and physical is contained in the chart previously completed note. Please refer to that note for this information. Discharge Providers Provider Date of admission: May 19, 2021 Discharge Date: 05/20/21 Primary care physician: Kyle Barrera MD Consults: 05/19/21 16:29 Consult to Discharge Planning Routine Comment: Consult to Physical Therapy Evaluate & Treat Comment: Physician Instructions: postop TKA protocol Discharge provider: Jose Cotto MD Summary Hospital Course Discharge Diagnosis: 1. Right knee osteoarthritis 2. Mild post hemorrhagic anemia 3. Postoperative urinary retention Hospital Course: The patient was admitted the hospital and taken directly to the operating room May 19, 2021 where he underwent a right total knee replacement without complications. He was stable postoperative day 1 at the time of this dictation the plan is for him to go home if he does well with physical therapy. He did have an episode of urinary retention both after his prior total knee replacement and last night. A Jackson catheter has been placed. That will be discontinued for a voiding trial this morning. Status at Discharge Cognitive/behavioral status at discharge: at baseline, oriented Functional status at discharge: uses cane/walker Overall status at discharge: patient is progressing back to baseline Time Spent with Patient Time spent: Less than 30 minutes Exam Vital Signs (past 8 hours): - 05/20/21 00:00 05/20/21 04:00 Temperature 98.5 F 98.1 F Pulse Rate 98 H 93 H Respiratory Rate 16 16 Blood Pressure 131/86 134/84 Pulse Oximetry 96 Oxygen Delivery Method Room Air Oxygen Flow Rate 0 Narrative Exam Narrative: Right knee wound is dressed with no drainage on the bandage. Calf is soft. Light touch and motion are intact in the right lower extremity. 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 He does have urinary retention but when he attempted to void last night his perineum was still numb. He has a catheter in place and we will discontinue that this morning once he has sensation and see if he can void. He is already on tamsulosin. Plan is for discharge home later today. Plan of Treatment: Trial of voiding as noted above. Discharge home if passes physical therapy. Follow-up in my office in 2 weeks. Discharge medications for oxycodone have been sent in to [facility]. He has been given instructions for DVT prophylaxis with aspirin and Tylenol for pain control. Discharge Plan Discharge Plan Patient Disposition: Home Discharge orders & Medications Discharge Orders: Discharge (Order); Ordered 05/20/21 Ordered By: Jose Cotto Prescriptions: New acetaminophen 325 mg Tablet 650 mg PO TID 30 Days Qty: 180 0RF oxycodone 5 mg Tablet 5 mg PO Q4H PRN (Reason: Pain, Moderate (4-6)) Qty: 40 0RF Continued losartan 50 mg Tablet 50 mg PO DAILY 0RF polyethylene glycol 3350 17 gram Powder In Packet 17 g PO DAILY PRN (Reason: Constipation from the narcotic pain med) Qty: 14 0RF tamsulosin 0.4 mg capsule 0.8 mg PO BEDTIME 0RF aspirin 81 mg Tablet,Delayed Release (Dr/Ec) 81 mg PO BID PRN (Reason: To prevent blood clots x6 weeks) 42 Days Qty: 90 0RF Label Comments: 1 month or more ibuprofen 400 mg Tablet 400 mg PO Q4HR MDD Max 2400 mg per day PRN (Reason: pain) 30 Days Qty: 90 0RF Discontinued acetaminophen 500 mg capsule 500 mg PO Q4H MDD Max 6 tabs/day PRN (Reason: pain) Qty: 90 0RF oxycodone 5 mg Tablet 5 mg PO Q3HR PRN (Reason: Breakthrough pain, moderate to severe) Qty: 42 0RF Follow up/Referrals: Kyle Barrera MD [Primary Care Provider] - Jose Cotto MD [Physician] - 2 Weeks Diet/Activity/Treatments Diet: Diet as Tolerated and Regular Activity: You may bear weight as tolerated on your right leg. Cold/Heat Therapy: Apply ice to the right knee for 15 minutes every hour as needed for pain control. Skin/Wound/Dressing Care Report to your healthcare provider any signs of infection, such as:: chills, fever, night sweats, increased pain, unusual drainage and unusual redness Dressing: You may remove the Yimi wrap 3 days after surgery and shower normally with the deeper dressing in place. If the deeper dressing becomes saturated with either water or blood, please call the office to have it evaluated. Visit Report/Discharge Packet Instructions: DI for Knee Replacement Stand Alone Forms: Surgery Discharge Discharge Data Primary Care Provider: Kyle Barrera Attending Provider: Jose Cotto Quality VTE Deep Vein Thrombosis/Pulmonary Embolism Present on Admission: No
[2021-05-20 08:51] VITALS: BP 127/62; PULSE 89; RESP 15; TEMP 36.6; O2SAT 98
[2021-05-20 08:57] VITALS: BP 127/62; PULSE 89
[2021-05-20] MEDS: LOSARTAN 50 MG TABLET PO (08:57)
[2021-05-20] MEDS: DOCUSATE 100 MG CAPSULE PO (08:57)
[2021-05-20] MEDS: ACETAMINOPHEN 325 MG TABLET 650 MG PO (08:58)
[2021-05-20] MEDS: IBUPROFEN 400 MG TABLET PO (09:00)
[2021-05-20] MEDS: ASPIRIN EC 81 MG TABLET PO ×2 (09:00)
--- NOTE | 2021-05-20 10:24 | PT.IIE ---
Current Diagnoses Unilateral primary osteoarthritis, left knee (05/20/21) Surgery Performed Operation Date: 05/19/21 13:45 Actual Procedures p Total Knee Arthroplasty(Right) - Jose Cotto MD Medical History (Last Reviewed 02/09/21 @ 09:18 by Jami Westbrook PA-C) Arthritis Dislocation of left shoulder joint Easy bruisability HTN (hypertension) Neuropathy Osteoarthritis Physical Therapy Inpatient Evaluation/Re-Eval M1 PT/OT-IP Prior Functional Status Start: 05/20/21 08:52 Freq: NEEDED Status: Active Protocol: Document 05/20/21 10:24 AW (Rec: 05/20/21 12:44 AW [id number]) Medical Review Prior Functional Status Medical History Reviewed Yes Communication WNL, pt wears glasses. Mobility and Gait Independent without AD. Pt used FWW for ~1 week after L TKA in January. Activities of Daily Living and IADL's Indpendent with all. He enjoys cooking for his . Prior Functional Level (Other details) Pt enjoys boating and crabbing . Social History Household Members spouse Living Arrangements House Number of Floors (Floors) Two Floors Number of Stairs To Enter/Railing? 1 [id number]. Pt can stay on main level until ready to manage stairs to second level bedroom . Home Environment Standard Height Toilet,Walk in Shower,Built-In Shower Seat Home Equipment Front Wheel Walker,Straight Cane,Crutches,Grab Bars In Shower Employment Status Retired Additional Social History Comment Pt is retired from the bar/ restaurant industry. He lives in [place] with his , Lelia, who will be available and able to assist him as needed. M2 PT-IP Current Condition Start: 05/20/21 08:52 Freq: NEEDED Status: Active Protocol: Document 05/20/21 10:24 AW (Rec: 05/20/21 12:44 AW [id number]) Physical Therapy Current Condition Current Condition Evaluation Date 05/20/21 Treatment Diagnosis R TKA; impaired gait Onset Date 05/19/21 M3 PT-IP Subjective Start: 05/20/21 08:52 Freq: NEEDED Status: Active Protocol: Document 05/20/21 10:24 AW (Rec: 05/20/21 12:44 AW [id number]) Subjective Physical Therapy Visit Type Type Initial Evaluation Visit Start Time 09:58 Visit Stop Time 10:24 Total Visit Minutes 26 Notes Pt's spouse was present throughout this encounter. Physical Therapy Visit Comments Patient Comments [place] the [address] back to [facility]. Patient Goals Return to regular activity, including boating this summer Therapy Pain Assessment Pain When Pain Assessed During Mobility Pain Present Pain Present Pain Reported Location Left Knee Intensity 4 Scale Used Numeric (0 - 10) Pain Management Techniques Apply Cold,Timing of Activity with Medications M4 PT-IP Mobility and Gait Start: 05/20/21 08:52 Freq: NEEDED Status: Active Protocol: Document 05/20/21 10:24 AW (Rec: 05/20/21 12:44 AW [id number]) PT-Bed Mobility Assessment Supine to Sit Supine to Sit Standby Assistance Scooting Scooting to Edge of Bed Independent PT-Transfer Assessment Sit to and From Stand Sit to and from Stand Standby Assistance Equipment Transfer Assistive Device Gait Belt,Front Wheeled Walker Orthotic/Prosthetic Devices or Brace: No Transfers Transfer Destination Chair Transfer Technique pt amb with FWW Transfer Ability Level of Assist Standby Assistance Comments Mobility Comments Pt completed all bed mobility SBA. He stood with FWW and ambulated in the halls, completed stair training, and returned to the room. He pushed the walker over the toilet and was able to void standing SBA. He transferred to the chair and was left with call light in reach. Gait Assessment Gait Gait Assistance Required: Standby Assistance Distance (Feet) 200 Able to Maintain Weight Bearing Status Yes During Gait Assistive Devices Assistive Device Gait Belt,Front Wheeled Walker Orthotic/Prosthetic Devices or Brace: No Gait Deviations General Gait Pattern Antalgic,Flexed Trunk,Step-to Gait Factors Limiting Gait Function Factors Limiting Gait Function Decreased Strength,Limited Range of Motion,Pain Comments Gait Comments Pt was able to ambulate safely with FWW and minimal compensation. Stair Climbing Assessment Evaluation Level of Assist On Stairs Standby Assistance Technique/Endurance Stair Climbing Direction Ascend and Descend Stair Climbing Technique Step to Step Number of Steps Climbed 3 Query Text: Stair Climbing Set # Repetitions (reps) 1 Comments Stair Climbing Comments Pt completed training on platform step and also did three steps with B rails SBA. He needed no cues for patterning. PT-Balance Assessment Sitting Balance and Reactions Static Sitting Balance Ability Normal Dynamic Sitting Balance Ability Normal Standing Balance and Reactions Static Standing Balance Ability Good Dynamic Standing Balance Ability Good Device Used FWW M5 PT-IP Objective Assessments Start: 05/20/21 08:52 Freq: NEEDED Status: Active Protocol: Document 05/20/21 10:24 AW (Rec: 05/20/21 12:44 AW [id number]) Orientation Orientation/Cognition Level of Alertness Alert Orientation Name,Day of Week,Place, Situation Language Function Ability No Deficits Noted Safety Awareness Understands Safety Issues Memory Description No Deficits Noted Gross Range of Motion Lower Extremity ROM Assessment Right Impaired Strength Lower Extremity Strength Assessment Right Impaired Comments Strength Comments LLE grossly 5/5 Sensation Assessment Sensation Gross Sensation WNL M6 PT-IP Treatment Start: 05/20/21 08:52 Freq: NEEDED Status: Active Protocol: Document 05/20/21 10:24 AW (Rec: 05/20/21 12:44 AW [id number]) Physical Therapy Treatment Exercises Exercises Ankle Pumps,Quad Sets,Heel Slides,Passive Knee Extension Hang,Seated Knee Flexion/ Extension Education Education Provided Weight Bearing Status,Post-Op Packet,Safety Other Treatments Other Treatment Performed Educated pt on importance of ROM in early phase of rehab, WB status, safe use of FWW. M7 PT-IP Assessment and Plan Start: 05/20/21 08:52 Freq: NEEDED Status: Active Protocol: Document 05/20/21 10:24 AW (Rec: 05/20/21 12:44 AW [id number]) PT Summary Assessment and Plan Potential Rehabilitation Potential Good Status of Condition at Evaluation Evolving Summary Impairments Pain,ROM,Strength,Balance,Bed Mobility,Transfers,Gait Assessment Summary Yossi is an active 75 yo man seen for PT evaluation on POD1 following R TKA. He had L TKA in January 2021 and has been satisfied with his rehab except for some occasional tightness which he feels limits full flexion. He used a FWW for ~one week after surgery but is typically independently mobile. On evaluation, pt demonstrate good safety awareness and was able to use FWW for SBA ambulation, transfers, and platform step. He will have his to assist at home. He is safe for discharge home with assist and outpatient PT which is already scheduled. No further acute PT needs are identified. Frequency of Treatment Frequency Of Treatment Discharge Weight Bearing Status Weight Bearing Status Weight Bear as Tolerated Recommendations To Nursing Amount of Assist Needed Standby Assistance Discharge Recommendations PT Discharge Recommendations Home with Assistance, Outpatient PT Transportation Needs at Discharge Private Vehicle
--- NOTE | 2021-05-20 10:32 | CM.DANOTE ---
DCP: Case received, EMR reviewed and met with patient. Spouse, Cailin, was at bedside.Introduced self and role. Was able to obtain information regarding patient's baseline activity status prior to his surgery. DCP assessment completed with information currently available. Patient is a 75 year old male who admitted yesterday morning to the care of the orthopedic team. PCP: Dr. Barrera. Payer: confirmed: Medicare/[employer]. Patient came to the hospital via private vehicle for a surgical procedure. Patient had a right total knee replacement. Patient has history of osteoarthritis of left knee. According to patient, he had his other knee done a few months ago. Met with patient and spouse. He and spouse are pleasant. Patient is alert and oriented, laying upright on his bed. He and his spouse reside in [place]. They have been staying here at [facility], due to the [facility] system. He is independent at his baseline, and uses no DME. P: Patient has discharge orders for home, he will be working with P.TJordan hammond. Sarah Cantu RN/Stock Preparer Discharge Planning/Care Management CM Discharge Assessment Start: 05/20/21 10:31 Freq: Status: Active Protocol: Document 05/20/21 10:31 (Rec: 05/20/21 10:32 [id number]) Discharge Planning Assessment Assigned Joint Sealer Sarah Cantu RN/Stock Preparer Advance Directives? Yes Advance Directives on File No History Provided By Patient,Medical Record Prior Living Arrangements House Household Members spouse Type of transporation used prior to Drives own vehicle admit Independent with ADL's Yes Is patient alert and oriented? Yes Caregiver for Another No Patient/Family Preference OP PT Therapy Barriers to Discharge No Discharge Plan Home Transportation Arrangement Spouse Referrals Initiated None needed Whiteboard Updated in Patient Room with Yes name and ext. # of Joint Sealer Review Status In Process Next Review Type Continued Stay Review Pre-Anesthesia Assessment Start: 05/11/21 14:05 Freq: Status: Complete Protocol: Document 05/11/21 14:05 CAB (Rec: 05/11/21 14:15 CAB [id number]) Pre-Anesthesia Assessment PAC Comment Pt is s/p LT TKA 02/08/21. He declined phone assessment. 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 He reports no other changes to medical/medication history and had no questions for upcoming surgery Preferred Name Raman Sy Patient Information Reviewed Via Chart Review Comment COVID screen @ [facility] 05/17/21 Primary Care Provider Kyle Barrera Seen Specialist in Last 12 Months Yes Specialist Seen Orthopedist Primary Language Citizen Of [place] Preferred Language Citizen [place] Environment Artist Required No Height 5 ft 8 in Weight 159 lb Body Mass Index (BMI) 24.1 Hearing Ability Normal Visual Impairment No Limitations Visual Assist None Dentition Type Teeth, Natural Present Barriers to Learning None Other Aids No Hx Anesthesia Reactions No Hx Family Anesthesia Reaction No Hx Malignant Hyperthermia No Hx Blood Transfusions No Anesthesia Review Requested No alcohol intake current alcohol intake frequency 0-2 drinks per day Smoking Status Never smoker Substance Use Type does not use Pain Present Pain Reported Musculoskeletal Symptoms Abnormal Gait,Difficulty Walking,Joint Pain,Limited Range of Motion,Numbness History of Falling (Recent or History of Yes ) Patient is completely paralyzed or No completely immobile Is patient on oxygen? No Does patient have THOMAS/SOB No Hx Sleep Apnea No CPAP/BIPAP use not prescribed Currently Taking a Beta Archana No Can You Climb a Flight of Stairs Without Yes SOB Hx Chest Pain No Hx SOB No Hx Syncope or Dizziness No Anti-Coagulant Therapy No Has a Construction Trench Digger No Cardiac Testing No Hx Pacemaker/ICD No Pacemaker Rep Required? No Cardiac Clearance Received Not Applicable Diet Type At Home Regular dysphagia No Bladder Pattern Retention Urinary Catheter Present No Hx Urinary Self Catheterization No Diabetes No HgbA1C 5.3 Date 01/28/21 Hx Drug Resistant Organism No Presence of External or Internal Medical Yes: Left hip/knee, bilat IOLs Devices Received a COVID vaccine? Yes Marital Status Lives With spouse Prior Living Arrangements House Number of Floors (Floors) Two Floors Support System Spouse Does the Patient Have Assistance After Yes Surgery Patient Discharge Plan Description Return Home Comment Lives on [facility] Feels Safe in Current Environment Yes Been Physically Hurt or Threatened By a No Person in Current Environment Are you currently considering suicide? No Do you have a plan to hurt yourself or No Plan others? Do You Have Any Spiritual Beliefs That No May Affect Your HC Choices? Do You Have Any Cultural Practices That No May Affect Your HC Choices? Who Can We Speak to About Patient's Care Family, friends Identifying Code for Release of Patient Declines to issue Information Health Care Proxy/Next of Kin Lelia () Health Care Proxy Emergency Contact Name Lelia () Emergency Contact Advance Directives? Yes Advance Directives on File No Power of Marine Cargo Inspector Yes Power of Marine Cargo Inspector Name Lelia () Power of Marine Cargo Inspector
--- NOTE | 2021-05-20 14:02 | PC.NURSE ---
Pt A&OX3, VSS, afebrile on RA. LS CTA. He reports pain well controlled, denies pain without movement. Per MD orders Jackson removed this a.m. He is able to void when ambulating with PT. He is cleared for discharge home. Dressing C/D/I. +CMS to RLE. He verbalizes understanding of discharge instructions, medications, site care, follow up instructions and signs and symptoms of infection. He is via w/ch with priority boarding pass to private vehicle with for discharge home back to [facility] at 1145 this a.m. He has all of his belongings including FWW.
== END 2021-05-20 11:45 | disposition home or self-care (01) ==
LOC: OR 11:11 → AC 11:11
PROVIDERS: Admitting Provider Orthopaedic Surgery; PCP Student in an Organized Health Care Education/Training Program; Referring Provider Orthopaedic Surgery; Visit Provider Orthopaedic Surgery
PROC: 0SRC0JZ Replacement of Right Knee Joint with Synthetic Substitute, Open Approach (ICD-10-PCS; CPT 27447; principal; 2021-05-19 13:45)
DX: M17.11 Unilateral primary osteoarthritis, right knee (principal); N40.0 Benign prostatic hyperplasia without lower urinary tract symptoms; I10 Essential (primary) hypertension; G62.9 Polyneuropathy, unspecified; D50.0 Iron deficiency anemia secondary to blood loss (chronic)
CPT/HCPCS: 27447; 36415; 73560; 85014; 85018; 97116; 97161; C1776; G0378; C9290; J0171; J0690; J1100; J2250; J2270; J2274; J2405; J2704; J3010